=== PATIENT | male | born 1945 | race Caucasian/White ===

== ENCOUNTER → 2017-01-27 09:10 | Outpatient (CLI) | payer MEDICARE, OTHER ==
[~2017-01-27 09:10] MED LIST: ASPIRIN EC81 M1 PO; BENADRYL50 MG PO; LIMBREL 500 MG500 MG PO; LISINOPRIL10 MG PO; MAGNESIUM OXID500 MG PO; METOPROLOL TART50 MG PO; MIRAPEX0.125 MG PO; MULTI-DAY VITAM1 TAB PO; OS-CAL 500+D TA1 TAB PO; PERCOCET 5-3251 TAB PO; PRAVACHOL40 MG PO; PROTONIX40 MG PO
--- NOTE | 2017-02-03 10:07 | EC ---
PATIENT:JOHN VARGAS DATE OF SERVICE: 01/27/17 SEX: M MEDICAL RECORD: [id number] DATE OF : 41 LOCATION:D.[facility] AGE OF PATIENT: 72 ADMISSION DATE: 01/27/17 REFERRING PHYSICIAN: INTERPRETING PHYSICIAN: ANTHONY ROMAN MD ECHOCARDIOGRAM REPORT ECHO CHARGES 4 ECHO COMPLETE CLINICAL DIAGNOSIS: CP/DIZZINESS - H/O AVR ECHOCARDIOGRAPHIC MEASUREMENTS (adult normal given) AC root (d.<3.7cm) 3.4 cm LV Septum d (<1.2 cm> 1.3 cm Valve Excursion 1.0 cm LV Septum (systole) 2.1 cm Left Atria (s.<4.0cm> 4.1 cm LVPW d(<1.2cm) 1.4 cm RV (d.<2.3cm) 2.4 cm LVPW (sytole) 2.0 cm LV diastole(<5.6CM) 5.7 cm MV E-F(>70mm/sec) cm LV systole 3.0 cm LVOT Diameter 1.7 cm MV exc.(>10mm) cm Est.ejection fraction (50-75%) % Pericardial Effusion N DOPPLER: LVIT cm/sec A 72.0 cm/sec E 107 cm/sec LA cm/sec RVSP 48.4 mmHg LVOT 115 cm/sec AOP1/2T m/s Asc. Ao 269 cm/sec RVOT 43.0 cm/sec RA cm/sec PA 86.0 cm/sec AV Gradient Peak 29.0 mmHg AV Mean 15.0 mmHg AV Area 0.9 cm MV Gradient Peak 7.9 mmHg MV Mean 2.3 mmHg MV Area cm COMMENTS: Warp Doffer: Amy [employer]OE Automation And Controls Manager: Anastasiia Roman TAPE# PACS DATE OF SERVICE: 01/27/2017 PROCEDURE: Transthoracic echocardiogram. FINDINGS: 1. The left ventricle has [id number] concentric left ventricular hypertrophy. Inflow characteristics, however, normal. 2. The left ventricular ejection fraction is 60%. 3. The aortic valve has a history of aortic valve replacement. Dimensions of aortic valve are not known at this point. The peak gradient across the ECHOCARDIOGRAM REPORT [id number] JOHN VARGAS bioprosthetic aortic valve is 29 mmHg, which may be normal depending on the initial size of that valve that was replaced. 4. The left atrium is mildly dilated. 5. The right ventricle is normal size, normal function. 6. The right atrium is moderately dilated. 7. The tricuspid valve has moderate tricuspid regurgitation with a mildly elevated right ventricular systolic pressure of 40. 8. There is no pleural effusion. There is no pericardial effusion. The pulmonic valve is grossly normal. 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 Normal LV systolic function. TRANSINT:[id number] Voice Confirmation ID: [id number] DOCUMENT ID: [id number] ANTHONY ROMAN MD at 1007 CC: [id number] DICTATION DATE: 01/29/17 0836 PARALEGAL SPECIALIST: 01/29/17 0917 DEP CLI 01/27/17 [facility] [address] [place] [address]
[2017-04-15 12:52] VITALS: BMI 29.0
== END | disposition home or self-care (01) ==
LOC: D.ECHO 09:10
DX: R42 Dizziness and giddiness (principal)

== ENCOUNTER 2017-04-15 10:40 | Day surgery (SDC) | payer MEDICARE, OTHER ==
[~2017-04-15] VITALS: Ht 170.2 cm; Wt 83.9 kg
--- NOTE | ~2017-04-15 | OP ---
PATIENT NAME: JOHN VARGAS MEDICAL RECORD: [id number] :41 LOCATION:[facility] ADMISSION DATE: SURGEON: SUSANNA HOLCOMB DATE OF OPERATION: 04/15/2017 SURGEON: Susanna Holcomb DPM PREOPERATIVE DIAGNOSIS: Osteoarthritis, right first metatarsophalangeal joint. POSTOPERATIVE DIAGNOSIS: Osteoarthritis, right first metatarsophalangeal joint. PROCEDURE: Martin implant arthroplasty, first metatarsal, right foot. ANESTHESIA: Local with monitored anesthesia care. HEMOSTASIS: Pneumatic ankle tourniquet inflated to 250 mmHg. ESTIMATED BLOOD LOSS: Minimal. MATERIALS: One right medical LPT great toe implant. INJECTABLES: 20 cc of 0.5% bupivacaine plain. The patient has longstanding history of pain associated with the first metatarsophalangeal joint. Radiographs reveal complete erosion of the cartilage with copious osteophytes noted. I have discussed with him the proposed procedure, risks and benefits were discussed. Complications were reviewed. His questions were answered. He was appropriately consented for the above-mentioned procedure. DESCRIPTION OF PROCEDURE: The patient was brought in the operating room and placed in the operating table in the supine position. A timeout was called with Dr. Holcomb, who identified the patient, the surgical site, and the surgery to be performed. Once appropriate anesthesia was obtained, the foot was prepped and draped in the usual aseptic manner. Attention was directed to the dorsal aspect of the right foot where a 6-cm linear incision was made directly over the first metatarsophalangeal joint. This incision was carried deep to soft tissue with care being taken to retract all vital neurovascular structures. All bleeders were cauterized along the way. A large dorsal joint mass was identified on the first metatarsal head and this was removed utilizing both blunt and sharp dissection. The capsule structures were freed from the head of the first metatarsal, thus exposing the joint. The joint was inspected and there was essentially no cartilage remaining on the head of the first metatarsal or the base of the proximal phalanx. Next, utilizing a sagittal saw, all hypertrophied bone and osteophytes were removed. They were smoothed with combination of rongeur and rasp. Next, utilizing manufacture's recommended technique, one martin-implant was placed at the base of the proximal phalanx after appropriate resection of bone. The surgical site was then irrigated with copious amounts of normal sterile saline via bulb syringe. The martin-implant was noted to fit well and range of motion was noted to be much improved after implantation. The periosteum was reapproximated and coapted utilizing 3-0 Vicryl. The subQ was reapproximated and coapted using 3-0 Vicryl. The skin was reapproximated OPERATIVE REPORT [id number] JOHN VARGAS and coapted using 4-0 nylon. A dressing consisting of Xeroform, 4 x 4's, Kerlix, and Taurus bandage was applied to the right foot. The pneumatic ankle tourniquet was deflated and capillary refill time was immediate to all digits of the right foot. The patient tolerated the procedure and anesthesia well. He left the operating room with vital signs stable and capillary refill time intact. The patient was discharged home with instructions to ice and elevate his right foot. He was dispensed a postop shoe to help offload the surgical site. We will follow up with him next week. There were no complications with this procedure. TRANSINT:[id number] Voice Confirmation ID: [id number] DOCUMENT ID: [id number] SUSANNA HOLCOMB at 1450 CC: [id number] DICTATION DATE: 04/15/17 1634 DIRECTOR CLINICAL PHARMACOLOGY: 04/15/17 2318 [facility] 04/15/[address] [address]
[2017-04-15 11:59] LABS: BASOPHILS 0.3 % (0-2); EOSINOPHILS 3.7 % (0-7); HEMATOCRIT 39.1 % (42.0-54.0); HEMOGLOBIN 12.7 g/dL (13.5-17.5); LYMPHOCYTES 31.4 % (15-50); MCH 26.1 pg (26.0-34.0); MCHC 32.5 g/dL (31.0-37.0); MCV 80.5 fL (80.0-100.0); MEAN PLATELET VOLUME 10.1 fL (7.4-10.4); MONOCYTES 11.9 % (2-11); NEUTROPHILS 52.7 % (40-80); PLATELET COUNT 169 10x3/uL (130-400); RBC 4.86 10x6/uL (4.20-6.10); RDW 15.4 % (11.5-14.5); WBC 3.5 10x3/uL (4.8-10.8)
[2017-04-15 12:06] LABS: APTT 28.1 SECONDS (22.8-39.4); INR 1.08 (0.85-1.17); PROTIME 13.6 SECONDS (11.6-15.0)
[2017-04-15 12:52] VITALS: BP 137/87; Ht 170.2 cm; Wt 83.9 kg
== END 2017-04-15 17:35 | disposition home or self-care (01) ==
LOC: D.OPS 10:40 → D.PAN 13:15 → D.OPS 17:35
PROVIDERS: Anesthesiology
DX: M20.21 Hallux rigidus, right foot (principal); I10 Essential (primary) hypertension; Z01.812 Encounter for preprocedural laboratory examination

== ENCOUNTER → 2017-12-21 10:23 | Outpatient (CLI) | payer MEDICARE, OTHER ==
[2017-04-15 12:52] VITALS: BMI 29.0
== END | disposition home or self-care (01) ==
LOC: D.MRI 10:23
DX: M25.562 Pain in left knee (principal)

== ENCOUNTER → 2018-08-22 10:17 | Outpatient (CLI) | payer MEDICARE, OTHER ==
[2017-04-15 12:52] VITALS: BMI 29.0
== END | disposition home or self-care (01) ==
LOC: D.HCCARDIO 10:17
PROVIDERS: ATTEND Internal Medicine Interventional Cardiology
DX: R01.1 Cardiac murmur, unspecified (principal)

== ENCOUNTER → 2018-08-22 16:41 | Outpatient (CLI) | payer MEDICARE, OTHER ==
[2017-04-15 12:52] VITALS: BMI 29.0
--- NOTE | ~2018-08-22 | EC ---
PATIENT:JOHN VARGAS DATE OF SERVICE: 08/22/18 SEX: M MEDICAL RECORD: [id number] DATE OF : 41 LOCATION:D.[facility] AGE OF PATIENT: 73 ADMISSION DATE: 08/22/18 REFERRING PHYSICIAN: INTERPRETING PHYSICIAN: MALLORY HINES MD ECHOCARDIOGRAM REPORT ECHO CHARGES Date: CLINICAL DIAGNOSIS: ECHOCARDIOGRAPHIC MEASUREMENTS (adult normal given) AC root (d.<3.7cm) cm LV Septum d (<1.2 cm> cm Valve Excursion cm LV Septum (systole) cm Left Atria (s.<4.0cm> cm LVPW d(<1.2cm) cm RV (d.<2.3cm) cm LVPW (sytole) cm LV diastole(<5.6CM) cm MV E-F(>70mm/sec) cm LV systole cm LVOT Diameter cm MV exc.(>10mm) cm Est.ejection fraction (50-75%) % DOPPLER: LVIT cm/sec A cm/sec E cm/sec LA cm/sec RVSP mmHg LVOT cm/sec AOP1/2T m/s Asc. Ao cm/sec RVOT cm/sec RA cm/sec PA cm/sec AV Gradient Peak mmHg AV Mean mmHg AV Area cm MV Gradient Peak mmHg MV Mean mmHg MV Area cm COMMENTS: Strapper: Auxiliary Equipment Tender: ALEJANDRO# Pericardial Effusion DATE OF SERVICE: 08/22/2018 PROCEDURE: Echocardiogram. FINDINGS: 1. Left ventricular chamber size is within normal limits. Left ventricular systolic function is normal. Overall ejection fraction estimated at 55%. 2. Left atrium is enlarged at 5.8 cm. Right atrium and right ventricular chamber sizes are as well mildly dilated. 3. Valvular structures: Aortic valve is replaced with a tissue prosthesis with ECHOCARDIOGRAM REPORT [id number] JOHN VARGAS normal structure and function in this position. The remaining valvular structures have normal structure and motion. 4. Doppler interrogation reveals mild mitral regurgitation, moderate tricuspid regurgitation, no other valvular insufficiency or stenosis. 5. No evidence of pericardial effusion or left ventricular thrombus. TRANSINT:[id number] Voice Confirmation ID: [id number] DOCUMENT ID: [id number] MALLORY HINES MD CC: [id number] DICTATION DATE: 08/29/18 1021 FURRIER DESIGNER: 08/29/18 1123 DEP CLI 08/22/18 [facility] [address] [place] [address]
[2018-08-22 17:11] LABS: LDL-HDL RATIO 2.4 ratio (1.5-3.5)
== END | disposition home or self-care (01) ==
LOC: D.LABREF 16:41
PROVIDERS: ATTEND Internal Medicine Interventional Cardiology
DX: E78.5 Hyperlipidemia, unspecified (principal)

== ENCOUNTER → 2018-11-09 12:03 | Outpatient (CLI) | payer MEDICARE, OTHER ==
[2017-04-15 12:52] VITALS: BMI 29.0
--- NOTE | 2018-11-15 09:53 | ST ---
PATIENT:JOHN VARGAS MEDICAL RECORD: [id number] SEX: M LOCATION:[facility] ORDER #: ADMISSION DATE: 11/09/18 AGE OF PATIENT: 73 REFERRING PHYSICIAN: INTERPRETING PHYSICIAN: MALLORY HINES MD DATE OF SERVICE: 11/09/2018 PROCEDURE: Nuclear stress test. INDICATION: Angina, shortness of breath, hypertension and hyperlipidemia. He was exercised on standard Lexiscan protocol with 32 mCi of sestamibi injected at peak stress, 10 mCi used previously for rest images. FINDINGS: Gated SPECT reveals a preserved ejection fraction at 69% with good wall motioning and thickening and brightening throughout all segments. SPECT imaging Cardiolite was used as myocardial perfusion agent. There are reversible changes inferiorly, apically, and laterally. This includes the basal, mid, apical inferior segments as well as the apex itself, apical lateral, mid lateral, basal lateral segments. The degree of reversibility is mild. The amount of myocardium involved is large. OVERALL IMPRESSION: This is an intermediate risk nuclear stress test with large amount of myocardium involved with reversibility inferiorly, apically, and laterally suggestive of possible multivessel coronary artery disease. We will proceed with coronary angiography as followup to the study. TRANSINT:[id number] Voice Confirmation ID: [id number] DOCUMENT ID: [id number] MALLORY HINES MD at 0953 CC: [id number] DICTATION DATE: 11/11/18 1323 EFFICIENCY MANAGER: 11/12/18 0029 DEP CLI 11/09/18 [place] [id number]
== END | disposition home or self-care (01) ==
LOC: D.HCCARDIO 12:00
PROVIDERS: ATTEND Internal Medicine Interventional Cardiology
DX: I20.9 Angina pectoris, unspecified (principal)

== ENCOUNTER 2018-11-18 08:02 | Outpatient (CLI) | payer MEDICARE, OTHER ==
[~2018-11-18] VITALS: Ht 170.2 cm; Wt 81.8 kg
--- NOTE | ~2018-11-18 | HEMODYNAMI ---
PATIENT:JOHN VARGAS MEDICAL RECORD: [id number] : 41 LOCATION:[facility] ADMISSION DATE: 11/18/18 Generatedon:11/18/201811:02 Patient name: JOHN VARGAS Patient #: [id number] SSN: [id number] : 1945 Date of study: 11/18/2018 Page: Of Hemodynamic Procedure Report Patient Data Patient Demographics Procedure consent was obtained First Name: JOHN Gender: Male Last Name: ALICIA : 1945 Patient #: [id number] Age: 73 year(s) Race: SSN: [id number] Additional ID: [id number] Contact details Address: [address] [place] [address] State: [place] City: [place] Zip code: [address] Past Medical History Performed procedures and imaging results Date Procedure Procedure Results Comments 11/09/2018 Stress testing Positive->Intermediate with SPECT MPI risk Allergies Allergen Reaction Date Comments Reported Other allergy 11/18/2018 Dilaudid, morphine Admission Admission Data Admission Date: 11/18/2018 Admission Time: 8:02 Arrival Date: 11/18/2018 Arrival Time: 0:00 Admit Source: Other Insurance Payor: Medicare [facility] #: [id number] Height (in.): 66 BSA: 1.96 (m2) Height (cm.): 167.64 BMI: 30.67 (kg/m2) Weight (lbs.): 190 Weight (kg.): 86.18 Lab Results Lab Result Date: 11/16/2018 Lab Result Time: 8:40 Biochemistry Name Units Result Min Max BUN mg/dl 22 --(----)-* 7 18 Creatinine mg/dl 1.1 --(--*-)-- 0.6 1.3 CBC Name Units Result Min Max Hematocrit % 40.4 -*(----)-- 42 54 Hemoglobin g/dl 13.4 -*(----)-- 13.5 17.5 Procedure Procedure Types Cath Procedure Diagnostic Procedure [facility] w/Coronaries Sedation Charges Moderate Sedation up to 15 minutes Procedure Description Procedure Date Procedure Date: 11/18/2018 Procedure Start Time: 10:49 Procedure End Time: 11:00 Procedure Staff Name Function Monster Trevino MD Performing Physician Jesus Bob RT Monitor Richard Steward RN Nurse Agapito Hammonds RT Scrub Indication Shortness of breath Angina Procedure Data Cath Procedure Fluoroscopy Diagnostic fluoroscopy Total fluoroscopy Time: 2.9 time: 2.9 min min Diagnostic fluoroscopy Total fluoroscopy dose: 497 dose: 497 mGy mGy Contrast Material Contrast Material Type Amount (ml) Isovue 300 34 Entry Location Entry Primary Successful Side Size Upsize Upsize Entry Closure Succes sful Closure Location (Fr) 1 (Fr) 2 (Fr) Remarks Device Remarks Femoral Right 5 Fr Exoseal artery Estimated blood loss: 10 ml Diagnostic catheters Device Type Used For End Catheter Placement MULTIPACK Pigtail 5 Fr Procedure catheter MULTIPACK JL 4.0 5Fr Procedure catheter MULTIPACK 3DRC 5Fr Procedure catheter Procedure Complications No complications Procedure Medications Medication Administration Route Dosage Zofran I.V. 4 mg Oxygen etCO2 Nasal cannula 2 l/min Lidocaine 2% added to field 20 Heparin Flush Bag added to field 2 bags (1000units/500ml NS) 0.9% NaCl I.V. 100 ml/hr Versed I.V. 1 mg Fentanyl I.V. 50 mcg Versed I.V. 1 mg Fentanyl I.V. 50 mcg Versed I.V. 0.5 mg Hemodynamics Rest BSA: 1.96 (m2) O2 Consumption: Estimated: 214.87 (ml/min) O2 Consumption indexed : Estimated:109.63 (ml/min/m) Heart Rate: 56 (bpm) Snapshots Pre Cath Intra NCS Post Cath Vital Signs Time Heart Resp SPO2 etCO2 NIBP (mmHg) Rhythm Pain Sedation Rate (ipm) (%) (mmHg) Status Level (bpm) 10:35:11 58 17 99 0 168/92(149) NSR 0 (11) 10(A) , No pain 10:39:29 57 16 97 9.7 145/90(134) NSR 0 (11) 10(A) , No pain 10:43:45 56 16 98 0 139/88(122) NSR 0 (11) 10(A) , No pain 10:48:03 55 15 96 19.4 147/78(127) NSR 0 (11) 10(A) , No pain 10:52:23 57 14 90 30.7 130/78(123) NSR 0 (11) 9(A) , No pain 10:56:35 60 17 95 12.7 132/84(102) NSR 0 (11) 10(A) , No pain 11:00:49 57 22 98 38.1 140/79(124) NSR 0 (11) 9(A) , No pain Medications Time Medication Route Dose Verified Delivered Reason Notes Eff ectiveness by by 10:33:18 Zofran I.V. 4 mg Monster Ramos Per Uriel Steward RN physician 10:33:31 Oxygen etCO2 2 Monster Monster for local Nasal l/min Uriel Trevino MD anesthetic cannula 10:33:38 Lidocaine 2% added 20ml Monster Hook used for to vial Uriel Trevino MD procedure field 10:33:45 Heparin Flush added 2 Monsterkeyona Ramos used for Bag to bags Uriel Steward RN procedure (1000units/500ml field NS) 10:33:55 0.9% NaCl I.V. 100 Monster Ramos Per ml/hr Uriel Steward RN physician 10:47:04 Fentanyl I.V. 50 Monster Ramos for mcg Uriel Steward RN sedation 10:47:59 Versed I.V. 1 mg Monster Ramos for Uriel Steward RN sedation 10:51:35 Versed I.V. 1 mg Monster Ramos for Uriel Steward RN sedation 10:51:39 Fentanyl I.V. 50 Monster Ramos for mcg Uriel Steward RN sedation 10:55:55 Versed I.V. 0.5 Monster Ramos for mg Uriel Steward RN sedation Procedure Log Time Note 10:15:46 Richard Steward RN sent for patient. Start room use. 10:17:55 Informed consent obtained and on chart 10:21:17 Patient allergic to Other allergyDilaudid, morphine 10:21:31 Arrival Date: 11/18/2018 12:00:00 AM 10:22:21 Insurance Payor : Medicare 10:22:27 Admit Source: Other 10:22:40 Patient Height : 66 inches 10:22:47 Patient Weight : 190 lbs 10::16 Lab Result : BUN 22 mg/dl 10:: Lab Result : Hematocrit 40.4 % 10::16 Lab Result : Hemoglobin 13.4 g/dl 10:: Lab Result : Creatinine 1.1 mg/dl 10:: Diagnostic Cath Status : Elective 10::18 Indication : Shortness of breath 10:: Indication : Angina 10::18 ACC Patient presents with Stable Angina CCS Anginal Class 3--Marked limitation of physical activity, angina occurs with ordinary activity.. 10:28:24 ACCPatient has been prescribed/administered the following anti-anginal medication within the last 2 weeks: Beta Jenny, FATEMEH-Inhibitor 10::42 Procedure Status Elective Heart Cath (OP). 10:29:11 Time tracking: Regular hours (M-F 7:00 - 5:00) 10:29:30 Plan of Care:Hemodynamics will remain stable., Cardiac rhythm will remain stable., Comfort level will be maintained., Respiratory function will remain adequate., Patient/ family verbilizes understanding of procedure., Procedure tolerated without complication., Recovers from procedure without complications.. 10:29:39 Patient received from Pre/Post Procedure Room to CCL 1 Alert and oriented. Tansferred to table in Supine position. 10:29:44 Warm blankets applied, and chuck hugger turned on for patient comfort. 10:29:45 Correct patient and procedure confirmed by team. 10:29:46 ECG and BP/O2 sat monitors applied to patient. 10:30:12 H&P Date Dictated: 10/19/2018 Within 30 days and on chart., H&P Addendum completed by physician on day of procedure. (MUST COMPLETE FOR ALL OUTPATIENTS). 10:30:14 Pre-procedure instructions explained to patient. 10:30:15 Pre-op teaching completed and patient verbalized understanding. 10:30:20 Family in patients room. 10:30:23 Patient NPO since Midnight. 10:30:29 Is the patient allergic to Iodine/contrast media? No. 10:31:14 Previous problem with sedation/anesthesia? Yes Nausea 10:31:34 Snore? Yes 10:31:37 Sleep apnea? No 10:31:46 Deviated septum? No 10:31:48 Opens mouth fully? Yes 10:31:54 Sticks out tongue? Yes 10:32:04 Dentures? No ? 10:32:07 Airway obstruction? No ? 10:32:31 ACC The patient was administered the following blood thiners within the last 24 hours: None 10:32:40 Patient diabetic? No. 10:33:18 Zofran 4 mg I.V. was administered by Richard Steward RN; Per physician; 10:33:31 Oxygen 2 l/min etCO2 Nasal cannula was administered by Monster Trevino MD; for local anesthetic; 10:33:38 Lidocaine 2% 20ml vial added to field was administered by Monster Trevino MD; used for procedure; 10:33:45 Heparin Flush Bag (1000units/500ml NS) 2 bags added to field was administered by Richard Steward RN; used for procedure; 10:33:55 0.9% NaCl 100 ml/hr I.V. was administered by Richard Steward RN; Per physician; 10:34:00 Vital chart was started 10:34:09 Patient pain scale 0/10 ?. 10:34:16 Modified Herve's test Radial > 7 seconds. 10:34:32 IV patent on arrival in left wrist with 0.9% NaCl at 100ml/hr. 10:34:50 Lab results completed and on chart. 10:35:02 Right groin area was prepped with chlora-prep and draped in sterile fashion 10:35:06 Alarms reviewed by Tramaine Garduno 10:35:39 Pre procedure: right dorsailis pedis pulse 3+ Increased pulse; moderate pressure to obliterate 10:35:43 Pre procedure: right dorsailis pedis pulse 2+ Normal; easily identifiable; not easily obliterated 10:36:42 Use device set Femoral Dx 10:36:47 ACIST Syringe (57081) opened to sterile field. 10:36:48 Bag Decanter (2002) opened to sterile field. 10:36:49 Medline Cath Pack ([id number]) opened to sterile field. 10:36:52 ACIST Hand Control (24766) opened to sterile field. 10:36:54 ACIST Manifold (92917) opened to sterile field. 10:36:54 DIAGNOSTIC Multipack 5Fr catheter set (OT0710) opened to sterile field. 10:37:03 Tegaderm 4 x 4 (1626W) opened to sterile field. 10:37:07 EMERALD Guide Wire (490-031) opened to sterile field. 10:37:09 SHEATH 5FR Grover (EHQ475) opened to sterile field. 10:46:35 --------ALL STOP TIME OUT------ 10:46:35 Final Timeout: patient, procedure, and site verified with staff and physician. All members of the team are in agreement. 10:46:38 Right groin site verified by team. 10:46:42 Fire Safety Assessment: A--An alcohol-based skin anteseptic being used preoperatively., C--Open oxygen or nitrous oxide is being used., D--An ESU, laser, or fiber-optic light is being used. 10:46:45 Physical assessment completed. ASA score P 2 - A patient with mild systemic disease as per Monster Trevino MD. 10:46:48 2) 60-89 Mildly reduced kidney function, and other findings (as for stage 1) point to kidney disease. 10:47:04 Fentanyl 50 mcg I.V. was administered by Richard Steward RN; for sedation; 10:47:59 Versed 1 mg I.V. was administered by Richard Steward RN; for sedation; 10:48:09 Maximum allowable contrast dose (3.7 X eGFR X 0.75)192 ml. 10:48:13 Sedation plan: IV Moderate Sedation Medication:Versed, Fentanyl 10:49:36 Procedure started. 10:49:37 Full Disclosure recording started 10:49:40 Local anesthetic to right femoral artery with Lidocaine 2% by Monster Trevino MD.INITIAL ACCESS ONLY 10:50:48 A 5 Fr sheath was inserted into the Right Femoral artery 10:51:17 A MULTIPACK Pigtail 5 Fr catheter was advanced over the wire and used for Procedure. 10:51:35 Versed 1 mg I.V. was administered by Richard Steward RN; for sedation; 10:51:39 Fentanyl 50 mcg I.V. was administered by Richard Steward RN; for sedation; 10:52:37 Zero performed for pressure channel P1 10:52:46 Baseline sample Acquired. 10:52:51 Rhythm: sinus bradycardia 10:53:32 Unable to cross valve. 10:53:36 Catheter removed. 10:54:05 A MULTIPACK JL 4.0 5Fr catheter was advanced over the wire and used for Procedure. 10:54:55 LCA angiography performed. 10:54:58 Catheter removed. 10:55:14 A MULTIPACK 3DRC 5Fr catheter was advanced over the wire and used for Procedure. 10:55:46 RCA angiography performed. 10:55:49 ACCDominant side:Right 10:55:51 Catheter removed. 10:55:55 Versed 0.5 mg I.V. was administered by Richard Steward RN; for sedation; 10:56:09 EXOSEAL 5Fr (EX500) opened to sterile field. 10:56:28 Sheath removed intact; hemostasis achieved with Exoseal to the Right Femoral artery. 10:56:30 Procedure ended.(Physican Out) 10:58:07 Fluoroscopy time 02.90 minutes. 10:58:12 Fluoroscopy dose: 497 mGy 10:58:12 Flurop Dose total: 497 10:58:16 Dose Area Product 31128 mGy/cm. 10:58:21 Contrast amount:Isovue 300 34ml. 10:58:23 Maximum allowable dose exceeded? No. 10:58:24 Sharps counted by scrub and verified by R.N. 10:58:26 Insertion/operative site no bleeding no hematoma. 10:58:29 Post-op/insertion site Right Femoral artery dressed using a 4 x 4 and Tegaderm. 10:58:30 Post Procedure Pulses reassessed and unchanged 10:58:32 Post-procedure physical assessment completed. ASA score P 2 - A patient with mild systemic disease as per Monster Trevino MD. 10:58:35 Post procedure rhythm: unchanged. 10:58:38 Estimated blood loss: 10 ml 10:58:39 Post procedure instruction explained to patient.Patient verbalizes understanding. 10:58:40 Patient needs reinforcement of post procedure teaching. 10:58:50 Procedure type changed to Cath procedure, Diagnostic procedure, LHC, LHC w/Coronaries, Sedation Charges, Moderate Sedation up to 15 minutes 10:58:51 Procedure and supply charges have been captured, reviewed, submitted and are correct. 10:58:53 Procedure Complication : No complications 11:00:33 See physician's report for complete and final results. 11:00:34 Vital chart was stopped 11:00:48 Report given to Pre/Post Procedure Room. 11:00:51 Patient transfered to Pre/Post Procedure Room with Stretcher. 11:00:53 Procedure ended. 11:00:53 Full Disclosure recording stopped 11:01:04 End room use (Document Last) Device Usage Item Name Manufacture Quantity Catalog Hospital Part Current Minimal L ot# / Number Charge Number Stock Stock Serial# Code ACIST Acist 1 [id number] 332149 238648 20 Syringe Medical (09946) Systems Inc Bag Microtek 1 473923 01733 839192 5 Decanter Medical Inc. () Medline Medline 1 [id number] 822577 44168 554773 5 Cath Pack ([id number]) ACIST Hand Acist 1 67304 950309 540555 235430 5 Control Medical (07292) Systems Inc ACIST Acist 1 51986 759707 490286 734710 5 Manifold Medical (02003) Systems Inc DIAGNOSTIC Cardinal 1 [id number] 853967 04154 304652 30 Multipack Health 5Fr catheter set (BC2510) Tegaderm 4 3M 1 1626W 140871 222083 299147 5 x 4 (1626W) EMERALD Cardinal 1 502-455 873154 871329 866267 5 Guide Wire Health (502-455) SHEATH 5FR Terumo 1 NRY921 563786 614857 846492 5 Grover (UBL105) MULTIPACK Cardinal 1 401030 5 Pigtail 5 Health Fr catheter MULTIPACK Cardinal 1 751768 5 JL 4.0 5Fr Health catheter MULTIPACK Cardinal 1 785231 5 3DRC 5Fr Health catheter EXOSEAL 5Fr Cardinal 1 EX500 805691 609137 390839 10 (EX500) Health Signature Audit [place] Stage Time Signature Unsigned Intra-Procedure 11/18/2018 Jesus Bob 11:02:05 AM RT(R) Signatures Performing Physician : Signature : Monster Trevino MD Date : Time : Monitor : Jesus Bob RT Signature : Date : Time : Nurse : Buffie Steward RN Signature : Date : Time : [address] [place] [address]
[2018-11-18] MEDS ORDERED: MELATONIN10 M1 PO (08:24)
[2018-11-18 08:36] VITALS: BP 190/76; Ht 170.2 cm; Wt 81.8 kg
[2018-11-18 08:45] LABS: BASOPHILS 0.4 % (0-2); EOSINOPHILS 4.5 % (0-7); HEMATOCRIT 40.4 % (42.0-54.0); HEMOGLOBIN 13.4 g/dL (13.5-17.5); IMMATURE GRANULOCYTES 0.1 % (0-5); LYMPHOCYTES 19.2 % (15-50); MCH 27.2 pg (26.0-34.0); MCHC 33.2 g/dL (31.0-37.0); MCV 82.1 fL (80.0-100.0); MEAN PLATELET VOLUME 10.4 fL (7.4-10.4); MONOCYTES 9.5 % (2-11); NEUTROPHILS 66.3 % (40-80); PLATELET COUNT 169 10x3/uL (130-400); RBC 4.92 10x6/uL (4.20-6.10); RDW 14.7 % (11.5-14.5); WBC 7.3 10x3/uL (4.8-10.8)
[2018-11-18 08:58] LABS: CALCIUM 8.9 mg/dL (8.5-10.1); CARBON DIOXIDE 28.1 mmol/L (21.0-32.0); CHOL - HDL RATIO 2.8 ratio (2.3-4.9); CREATININE - SERUM 1.1 mg/dL (0.6-1.3); LDL-HDL RATIO 1.4 ratio (1.5-3.5); POTASSIUM - SERUM 4.1 mmol/L (3.5-5.1)
--- NOTE | 2018-11-18 11:25 | NUR ---
2L NC, NO RESP DISTRESS. RIGHT GROIN 5F EXOSEAL CDI, NO BLEEDING OR HEMATOMA NOTED. NO C/O PAIN OR NAUSEA. VSS. FAMILY AT BEDSIDE, CALL LIGHT WITHIN REACH.
--- NOTE | 2018-11-18 11:55 | NUR ---
RESTING QUIETLY WITH EYES CLOSED. RIGHT GROIN 5F EXOSEAL CDI, NO BLEEDING OR HEMATOMA NOTED. DENIES ANY NEEDS. VSS. WILL CONTINUE TO MONITOR.
--- NOTE | 2018-11-18 12:10 | NUR ---
HOB ELEVATED 30 DEGREES. RIGHT GROIN 5F EXOSEAL CDI, NO BLEEDING OR HEMATOMA NOTED. SIPPING ON DRINK AND EATING SANDWICH WITH NO C/O NAUSEA. VSS. CALL LIGHT WITHIN REACH.
--- NOTE | 2018-11-18 12:40 | NUR ---
LEFT PIV D/C'D WITH CATHETER INTACT, BAND AID TO SITE. RIGHT GROIN 5F EXOSEAL CDI, NO BLEEDING NOTED. UP TO BEDSIDE TO GET DRESSED. AMBULATED TO RESTROOM.
--- NOTE | 2018-11-18 12:52 | NUR ---
DISCHARGE INSTRUCTIONS GIVEN TO PT AND , BOTH VERBALIZED UNDERSTANDING.
--- NOTE | 2018-11-18 13:00 | NUR ---
TAKEN OUT VIA WHEELCHAIR BY CATH SOCIAL MEDIA STRATEGIST. LEFT FACILITY WITH FAMILY AND ALL PERSONAL BELONGINGS.
--- NOTE | 2018-11-29 12:04 | OP ---
PATIENT NAME: JOHN VARGAS MEDICAL RECORD: [id number] :41 LOCATION:D.[facility] ADMISSION DATE: SURGEON: MALLORY HINES MD DATE OF OPERATION: 11/18/2018 PROCEDURE: Selective coronary angiography. INDICATION: Shortness of breath, abnormal nuclear stress test, angina. PROCEDURE IN DETAIL: After informed consent was obtained and after a detailed description of risks, benefits as well as alternative therapies, the patient elected to proceed with angiogram and heart catheterization. The right femoral area was prepped and draped in normal sterile fashion. Right femoral artery was cannulated via modified Seldinger technique with placement of 5-Urdu sheath. All catheters exchanged through this sheath. FINDINGS: There is a prosthetic aortic valve. We could not cross the valve for left ventriculogram. SELECTIVE CORONARY ANGIOGRAPHY: Left main, left anterior descending, left circumflex, right coronary artery all have minimal irregularities, no flow-limiting stenosis. OVERALL IMPRESSION: Minimal coronary artery disease is present. No flow-limiting stenosis. His symptomatology is not secondary to ischemic heart disease. Nuclear stress test was false positive. Continue medical management of the cardiac risk factors. TRANSINT:[id number] Voice Confirmation ID: [id number] DOCUMENT ID: [id number] MALLORY HINES MD at 1204 CC: [id number] DICTATION DATE: 11/18/18 1101 HUMAN RESOURCE ADVISOR: 11/18/18 1120 DEP CLI 11/18/18 [place] [id number] [place] [id number]
== END 2018-11-18 13:00 | disposition home or self-care (01) ==
LOC: D.CATH 08:02
PROVIDERS: ATTEND Internal Medicine Interventional Cardiology
DX: R06.02 Shortness of breath (principal); I25.10 Atherosclerotic heart disease of native coronary artery without angina pectoris; Z01.812 Encounter for preprocedural laboratory examination; Z95.2 Presence of prosthetic heart valve

== ENCOUNTER → 2019-02-15 17:06 | Outpatient (CLI) | payer MEDICARE, OTHER ==
[2018-11-18 08:36] VITALS: BMI 28.2
[~2019-02-15 17:06] MED LIST changes: +MELATONIN10 M1 PO
[2019-02-15 19:08] LABS: CHOL - HDL RATIO 3.5 ratio (2.3-4.9); LDL-HDL RATIO 2.2 ratio (1.5-3.5)
== END | disposition home or self-care (01) ==
LOC: D.LABREF 17:06
PROVIDERS: ATTEND Nurse Practitioner
DX: E78.5 Hyperlipidemia, unspecified (principal)

== ENCOUNTER → 2019-04-11 09:15 | Outpatient (CLI) | payer MEDICARE, OTHER ==
[2018-11-18 08:36] VITALS: BMI 28.2
[~2019-04-11 09:15] MED LIST changes: +HYDROCODON-ACE1 EA10 PO; +PERCOCET 10-321 EAC1 PO; +TUMS X-STR300 MG PO; +VITAMIN D31000 UNI2 PO
== END | disposition home or self-care (01) ==
LOC: D.PAN 09:15
PROVIDERS: Anesthesiology; ATTEND Orthopaedic Surgery
DX: M65.342 Trigger finger, left ring finger (principal); M65.352 Trigger finger, left little finger; Z01.810 Encounter for preprocedural cardiovascular examination; Z01.811 Encounter for preprocedural respiratory examination; Z01.812 Encounter for preprocedural laboratory examination

== ENCOUNTER 2019-04-13 05:25 | Day surgery (SDC) | payer MEDICARE, OTHER ==
[2019-04-11 10:45] LABS: BASOPHILS 0.2 % (0-2); EOSINOPHILS 4.7 % (0-7); HEMATOCRIT 39.4 % (42.0-54.0); HEMOGLOBIN 12.8 g/dL (13.5-17.5); LYMPHOCYTES 27.1 % (15-50); MCHC 32.5 g/dL (31.0-37.0); MCV 83.1 fL (80.0-100.0); MEAN PLATELET VOLUME 9.7 fL (7.4-10.4); MONOCYTES 12.6 % (2-11); NEUTROPHILS 55.4 % (40-80); PLATELET COUNT 154 10x3/uL (130-400); RBC 4.74 10x6/uL (4.20-6.10); RDW 14.5 % (11.5-14.5); WBC 4.7 10x3/uL (4.8-10.8)
[2019-04-11 10:53] LABS: ANION GAP 8.1 mmol/L (8-16); CALCIUM 8.7 mg/dL (8.5-10.1); CREATININE - SERUM 1.2 mg/dL (0.6-1.3); POTASSIUM - SERUM 4.1 mmol/L (3.5-5.1)
[2019-04-11 10:54] LABS: APTT 29.6 SECONDS (22.8-39.4); INR 1.05 (0.85-1.17); PROTIME 13.2 SECONDS (11.6-15.0)
[~2019-04-13] VITALS: Ht 165.1 cm; Wt 85.7 kg
[~2019-04-13 05:25] MED LIST changes: -HYDROCODON-ACE1 EA10 PO
[2019-04-13 05:53] VITALS: BP 156/75; Ht 165.1 cm; Wt 85.7 kg
[2019-04-13] MEDS ORDERED: HYDROCODON-ACE1 EA10 PO (08:23)
--- NOTE | 2019-04-14 10:43 | OP ---
PATIENT NAME: JOHN VARGAS MEDICAL RECORD: [id number] :41 LOCATION:D.OPS ADMISSION DATE: SURGEON: HERO HERBERT, BEATRIZ CHISHOLM DATE OF OPERATION: 04/13/2019 PREOPERATIVE DIAGNOSES: Trigger finger, left hand, long finger; trigger finger, left hand, ring finger; trigger finger, left hand, small finger. POSTOPERATIVE DIAGNOSES: Trigger finger, left hand, long finger; trigger finger, left hand, ring finger; trigger finger, left hand, small finger. PROCEDURES: 1. A1 rosana trigger finger release, left hand, long finger. 2. A1 rosana trigger finger release, left hand, ring finger. 3. A1 rosana trigger finger release, left hand, small finger. SURGEON: Beatriz Monahan MD HISTOLOGIC AIDE: Phillip Estrella. INTRAOPERATIVE COMPLICATIONS: None. SUMMARY OF PATHOLOGIC FINDINGS: The patient had tight A1 pulleys across the flexor tendon mass with mild excoriation, but no tearing of the tendon. OPERATIVE SUMMARY IN DETAIL: After obtaining the appropriate preoperative orthopedic surgery consent as well as anesthetic consultation, evaluation and clearance, the patient was brought to the operating room and placed on the operating table in supine position. After general laryngeal mask airway was administered, tourniquet was placed on the proximal aspect of the left upper extremity. Left upper extremity was prepped and draped in routine sterile fashion. The arm was elevated and exsanguinated. Tourniquet was inflated to 250 mmHg. After the appropriate preoperative timeout was taken and agreed upon by all, incision was made simultaneously for approach to all three A1 pulleys. The ring finger was approached first, probably the tightest of the three, it was released in its entirety, followed by the long finger. Please note that during the case, all of the neurovascular bundles were identified and protected. The long finger was then released the A1 rosana in its entirety. Lastly, dissection was carried down to the A1 rosana sheath of the small finger and the A1 rosana was released in its entirety. Having completed this, the wound was irrigated and closed with 4-0 Prolene by AMI Alonso. The area was locally infiltrated with 0.25% Marcaine plain. Sterile dressings were applied. Tourniquet was deflated. The patient was awakened and taken to recovery room in stable condition. All final needle and sponge counts were correct. TRANSINT:[id number] Voice Confirmation ID: [id number] DOCUMENT ID: [id number] OPERATIVE REPORT [id number] JOHN VARGAS MD, BEATRIZ CHISHOLM at 1043 CC: [id number] DICTATION DATE: 04/13/19825 LOCKSTITCH SLEEVE SETTER: 04/13/19 0908 [facility] [place] 04/13/19 [place] [id number] [place] [id number]
== END 2019-04-13 10:10 | disposition home or self-care (01) ==
LOC: D.OPS 05:25 → D.PAN 07:30 → D.OPS 10:10
PROVIDERS: Anesthesiology; ATTEND Orthopaedic Surgery
DX: M65.322 Trigger finger, left index finger (principal); M65.352 Trigger finger, left little finger; M65.342 Trigger finger, left ring finger; R73.9 Hyperglycemia, unspecified; K21.9 Gastro-esophageal reflux disease without esophagitis; E78.5 Hyperlipidemia, unspecified; I10 Essential (primary) hypertension; M17.0 Bilateral primary osteoarthritis of knee

== ENCOUNTER → 2019-06-21 18:24 | Outpatient (CLI) | payer MEDICARE, OTHER ==
[2019-04-13 05:53] VITALS: BMI 31.5
[~2019-06-21 18:24] MED LIST changes: +HYDROCODON-ACE1 EA10 PO
[2019-06-21 19:02] LABS: CHOL - HDL RATIO 2.9 ratio (2.3-4.9); LDL-HDL RATIO 1.5 ratio (1.5-3.5)
== END | disposition home or self-care (01) ==
LOC: D.LABREF 18:24
PROVIDERS: ATTEND Internal Medicine Interventional Cardiology
DX: E78.5 Hyperlipidemia, unspecified (principal)

== ENCOUNTER → 2019-09-01 11:27 | Outpatient (CLI) | payer MEDICARE, OTHER ==
[2019-04-13 05:53] VITALS: BMI 31.5
[2019-09-02 17:08] LABS: ANA REFLEX - ANTICHROMATIN ABS 0.2 AI (0.0-0.9); ANA REFLEX - CENTROMERE B ABS <0.2 AI (0.0-0.9); ANA REFLEX - DBL STRANDED DNA 14 IU/mL (0-9); ANA REFLEX - DIRECT Positive (Negative); ANA REFLEX - JO-1 AB <0.2 AI (0.0-0.9); ANA REFLEX - RNP ANTIBODIES 0.2 AI (0.0-0.9); ANA REFLEX - SCL-70 <0.2 AI (0.0-0.9); ANA REFLEX - SJOGRENS AB SSA <0.2 AI (0.0-0.9); ANA REFLEX - SJOGRENS AB SSB <0.2 AI (0.0-0.9); ANA REFLEX - SMITH AB <0.2 AI (0.0-0.9)
== END | disposition home or self-care (01) ==
LOC: D.LAB 11:27
PROVIDERS: ATTEND Family Medicine
DX: R76.8 Other specified abnormal immunological findings in serum (principal); M15.9 Polyosteoarthritis, unspecified

== ENCOUNTER → 2020-07-05 08:34 | Outpatient (CLI) | payer MEDICARE, OTHER ==
[2020-05-15 11:43] VITALS: BMI 31.6
[~2020-07-05 08:34] MED LIST changes: +ASPIRIN81 MG PO; +BENADRYL50 MG; +CALCIUM CHEWABLE; +CARAFATE1 G; +COLACE100 MG PO; -LISINOPRIL10 MG PO; +LISINOPRIL20 MG PO; +OMEPRAZOLE40 MG; +PREDNISONE5 MG; +TUMERIC PO; +ZANAFLEX2 M1
== END | disposition home or self-care (01) ==
LOC: D.US 08:34
PROVIDERS: ATTEND Otolaryngology
DX: E04.1 Nontoxic single thyroid nodule (principal)

== ENCOUNTER → 2020-08-09 18:07 | Outpatient (CLI) | payer MEDICARE, OTHER ==
[2020-05-15 11:43] VITALS: BMI 31.6
[2020-08-09 19:23] LABS: BASOPHILS 0.2 % (0-2); EOSINOPHILS 6.8 % (0-7); HEMATOCRIT 42.3 % (42.0-54.0); HEMOGLOBIN 13.6 g/dL (13.5-17.5); LYMPHOCYTE ABS# 1.04 10x3/uL (1.32-3.57); LYMPHOCYTES 21.3 % (15-50); MCH 29.1 pg (26.0-34.0); MCHC 32.2 g/dL (31.0-37.0); MCV 90.4 fL (80.0-100.0); MEAN PLATELET VOLUME 11.3 fL (7.4-10.4); MONOCYTES 9.6 % (2-11); NEUTROPHIL ABS# 3.03 10x3/uL (1.78-5.38); NEUTROPHILS 62.1 % (40-80); PLATELET COUNT 233 10x3/uL (130-400); RBC 4.68 10x6/uL (4.20-6.10); RDW 13.3 % (11.5-14.5); WBC 4.9 10x3/uL (4.8-10.8)
[2020-08-09 19:32] LABS: ANION GAP 14.9 mmol/L (8-16); CALCIUM 8.8 mg/dL (8.5-10.1); CARBON DIOXIDE 26.8 mmol/L (21.0-32.0); CREATININE - SERUM 1.2 mg/dL (0.6-1.3); POTASSIUM - SERUM 4.7 mmol/L (3.5-5.1)
== END | disposition home or self-care (01) ==
LOC: D.LABREF 18:07
DX: I10 Essential (primary) hypertension (principal); R60.9 Edema, unspecified

== ENCOUNTER → 2020-09-16 07:53 | Outpatient (CLI) | payer MEDICARE, OTHER ==
[2020-05-15 11:43] VITALS: BMI 31.6
== END | disposition home or self-care (01) ==
LOC: D.HCCECHO 07:53
PROVIDERS: ATTEND Internal Medicine Cardiovascular Disease
DX: I10 Essential (primary) hypertension (principal); Z95.4 Presence of other heart-valve replacement

== ENCOUNTER 2020-09-24 06:49 | Day surgery (SDC) | payer MEDICARE, OTHER ==
[~2020-09-24] VITALS: Ht 170.2 cm; Wt 86.0 kg
--- NOTE | ~2020-09-24 | HEMODYNAMI ---
PATIENT:JOHN VARGAS MEDICAL RECORD: [id number] : 41 LOCATION:D.CAT ADMISSION DATE: 09/24/20 Generatedon::55 Patient name: JOHN VARGAS Patient #: [id number] SSN: [id number] : 1945 Date of study: 09/24/2020 Page: Of Hemodynamic Procedure Report Patient Data Patient Demographics Procedure consent was obtained First Name: JOHN Gender: Male Last Name: ALICIA : 1945 Patient #: [id number] Age: 75 year(s) Race: SSN: [id number] Additional ID: [id number] Contact details Address: [address] [place] [address] State: [place] City: [place] Zip code: [address] Past Medical History Allergies Allergen Reaction Date Comments Reported Other allergy 11/18/2018 Dilaudid, morphine Other allergy 09/24/2020 see chart Admission Admission Data Admission Date: 09/24/2020 Admission Time: 6:49 Arrival Date: 09/24/2020 Arrival Time: 8:30 Admit Source: Other Insurance Payor: Medicare [facility] #: [id number] Height (in.): 67 BSA: 1.98 (m2) Height (cm.): 170.18 BMI: 29.69 (kg/m2) Weight (lbs.): 189.6 Weight (kg.): 86 Lab Results Lab Result Date: 09/24/2020 Lab Result Time: 0:00 Biochemistry Name Units Result Min Max BUN mg/dl 13 --(--*-)-- 7 18 Creatinine mg/dl 1.2 --(---*)-- 0.6 1.3 eGFR ml/min 61.23885 *-(----)-- 90 120 NONAFRICAN CBC Name Units Result Min Max Hematocrit % 40.3 -*(----)-- 42 54 Hemoglobin g/dl 13.4 -*(----)-- 13.5 17.5 Procedure Procedure Types Cath Procedure Diagnostic Procedure [facility] w/Coronaries Aortic Root Angiography Sedation Charges Moderate Sedation 25-39 minutes Procedure Description Procedure Date Procedure Date: 09/24/2020 Procedure Start Time: 9:36 Procedure End Time: 9:54 Procedure Staff Name Function Nishant Boss MD Performing Physician Jennifer Curiel RT Monitor Ni Lopez RT Scrub Sae Foss RN Nurse Procedure Data Cath Procedure Fluoroscopy Diagnostic fluoroscopy Total fluoroscopy Time: 2.6 time: 2.6 min min Diagnostic fluoroscopy Total fluoroscopy dose: 548 dose: 548 mGy mGy Contrast Material Contrast Material Type Amount (ml) Isovue 370 69 Entry Location Entry Primary Successful Side Size Upsize Upsize Entry Closure Succes sful Closure Location (Fr) 1 (Fr) 2 (Fr) Remarks Device Remarks Femoral Right 5 Fr Exoseal artery Estimated blood loss: 5 ml Diagnostic catheters Device Type Used For End Catheter Placement MULTIPACK JL 4.0 5Fr Procedure catheter DIAGNOSTIC JL 5 5Fr Procedure catheter ([id number]) MULTIPACK 3DRC 5Fr Procedure catheter MULTIPACK Pigtail 5 Fr Procedure catheter Procedure Complications No complications Procedure Medications Medication Administration Route Dosage 0.9% NaCl I.V. 100 ml/hr Oxygen etCO2 Nasal cannula 2 l/min Benadryl I.V. 50 mg Heparin Flush Bag added to field 2 bags (1000units/500ml NS) Lidocaine 2% added to field 20 Versed I.V. 1 mg Fentanyl I.V. 50 mcg Versed I.V. 1 mg Fentanyl I.V. 50 mcg Hemodynamics Rest BSA: 1.98 (m2) HGB: 13.4 (g/dl) O2 Consumption: Estimated: 215.68 (ml/min) O2 Co nsumption indexed: Estimated:108.93 (ml/min/m) Heart Rate: 55 (bpm) Snapshots Pre Cath Intra NCS Post Cath Vital Signs Time Heart Resp SPO2 etCO2 NIBP (mmHg) Rhythm Pain Sedation Rate (ipm) (%) (mmHg) Status Level (bpm) 9:04:29 54 10 100 32.2 153/76(120) NSR 0 (11) 10(A) , No pain 9:08:43 53 11 98 33.7 121/73(100) NSR 0 (11) 10(A) , No pain 9:12:55 53 10 98 35.9 126/64(103) NSR 0 (11) 10(A) , No pain 9:17:03 55 11 99 33.7 136/77(111) NSR 0 (11) 10(A) , No pain 9:21:15 55 10 99 34.4 140/77(116) NSR 0 (11) 10(A) , No pain 9:25:33 55 10 99 34.5 144/65(116) NSR 0 (11) 10(A) , No pain 9:29:49 55 10 99 33.7 137/71(108) NSR 0 (11) 10(A) , No pain 9:34:05 56 16 97 9 118/68(87) NSR 0 (11) 9(A) , No pain 9:38:06 56 10 98 31.4 140/105(126) NSR 0 (11) 9(A) , No pain 9:42:25 53 11 99 27.7 138/65(112) NSR 0 (11) 9(A) , No pain 9:46:39 57 10 99 27.7 138/75(117) NSR 0 (11) 9(A) , No pain 9:50:52 64 12 99 18 148/77(120) NSR 0 (11) 10(A) , No pain 9:55:11 0 154/81(119) NSR 0 (11) 10(A) , No pain Medications Time Medication Route Dose Verified Delivered Reason Notes Effe ctiveness by by 9:02:59 0.9% NaCl I.V. 100 Nishant Sae used for ml/hr Gera Foss educational aide 9:03:10 Oxygen etCO2 2 Nishant Sae used for Nasal l/min Gera Foss educational aide cannula 9:03:18 Benadryl I.V. 50 mg Nishant Sae used for Gera Foss educational aide 9:03:30 Heparin Flush added 2 Nishant Nishant used for Bag to bags Gera Boss MD procedure (1000units/500ml field NS) 9:03:42 Lidocaine 2% added 20ml Nishant Nishant for local to vial Gera Boss MD anesthetic field 9:24:12 Versed I.V. 1 mg Nishant Sae for Gera Foss RN sedation 9:24:19 Fentanyl I.V. 50 Nishant Sae for mcg Gera Foss RN sedation 9:29:36 Versed I.V. 1 mg Nishant Sae for Gera Foss RN sedation 9:29:39 Fentanyl I.V. 50 Nishant Sae for mcg Gera Foss RN sedation Procedure Log Time Note 7:52:37 Informed consent obtained and on chart 7:52:42 Diagnostic Cath Status : Elective 7:54:21 Admit Source: Other 7:54:24 Arrival Date: 09/24/2020 8:30:00 AM 7:54:52 Insurance Payor : Medicare 8:44:46 Patient Height : 67 inches 8:44:54 Patient Weight : 189.6 lbs 8:45:27 ACC Patient presents with Unstable Angina CCS Anginal Class 2--Slight limitation of ordinary activity. 8:45:42 Procedure Status Elective Heart Cath (OP). 8:45:48 Time tracking: Regular hours (M-F 7:00 - 5:00) 8:45:58 Plan of Care:Hemodynamics will remain stable., Cardiac rhythm will remain stable., Comfort level will be maintained., Respiratory function will remain adequate., Patient/ family verbilizes understanding of procedure., Procedure tolerated without complication., Recovers from procedure without complications.. 8:46:01 Ni Lopez RT(R) sent for patient. Start room use. 8:47:13 Lab Result : eGFR NONAFRICAN 61.22049 ml/min 8:47:13 Lab Result : Creatinine 1.2 mg/dl 8:47:13 Lab Result : BUN 13 mg/dl 8:47:13 Lab Result : Hemoglobin 13.4 g/dl 8:47:13 Lab Result : Hematocrit 40.3 % 8:50:28 Lab results completed and on chart. 8:50:37 Risk of Mortality: .1 8:50:40 Risk of blood transfusion: .7 8:50:43 Risk of FABRICE: 1.0 8:50:44 Alarms reviewed by R. N. 8:50:45 Sharps counted by scrub and verified by R.N. 8:52:01 Patient received from Pre/Post Procedure Room to [facility] 2 Alert and oriented. Tansferred to table in Supine position. 8:52:02 Warm blankets applied, and chuck hugger turned on for patient comfort. 8:52:03 Correct patient and procedure confirmed by team. 8:52:03 ECG and BP/O2 sat monitors applied to patient. 8:52:04 Full Disclosure recording started 8:52:11 H&P Date Dictated: 09/04/2020 Within 30 days and on chart.. 8:52:11 Pre-procedure instructions explained to patient. 8:52:12 Pre-op teaching completed and patient verbalized understanding. 8:52:13 Family in patients room. 8:52:15 Patient NPO since Midnight. 8:52:26 Patient allergic to Other allergysee chart 9:02:59 0.9% NaCl 100 ml/hr I.V. was administered by Sae Foss RN; used for procedure; Verbal order read back and verified. 9:03:10 Oxygen 2 l/min etCO2 Nasal cannula was administered by Sae Foss RN; used for procedure; Verbal order read back and verified. 9:03:14 Vital chart was started 9:03:18 Benadryl 50 mg I.V. was administered by Sae Foss RN; used for procedure; Verbal order read back and verified. 9:03:20 Baseline sample Acquired. 9:03:26 Rhythm: sinus bradycardia 9:03:30 Heparin Flush Bag (1000units/500ml NS) 2 bags added to field was administered by Nishant Boss MD; used for procedure; Verbal order read back and verified. 9:03:42 Lidocaine 2% 20ml vial added to field was administered by Nishant Boss MD; for local anesthetic; Verbal order read back and verified. 9:03:52 Is the patient allergic to Iodine/contrast media? No. 9:03:59 Is patient on blood thinner?Yes 9:04:07 ACC The patient was administered the following blood thiners within the last 24 hours: ACCAspirin 9:04:20 Patient diabetic? No. 9:04:22 If diabetic: On Metformin? N/A 9:04:23 ----Pre-sedation anethsthesia assessment.---- 9:04:26 Previous problem with sedation/anesthesia? No ? 9:04:27 Snore? Yes 9:04:28 Sleep apnea? No 9:04:29 Deviated septum? No 9:04:30 Opens mouth fully? Yes 9:04:31 Sticks out tongue? Yes 9:04:38 Airway obstruction? No ? 9:04:42 Dentures? Yes IN TIGHT 9:04:46 Pre procedure: right dorsailis pedis pulse 1+ Palpable, but thready & weak; easily obliterated 9:04:51 Patient pain scale 0/10 ?. 9:04:56 IV patent on arrival in left antecubital with 0.9% NaCl at [facility]. 9:05:02 Right groin area was prepped with chlora-prep and draped in sterile fashion 9:05:12 Use device set Femoral Dx 9:05:13 ACIST Syringe (93130) opened to sterile field. 9:05:16 Bag Decanter (2002S) opened to sterile field. 9:05:17 Medline Cath Pack ([id number]) opened to sterile field. 9:05:18 ACIST Hand Control (08706) opened to sterile field. 9:05:20 ACIST Manifold (88561) opened to sterile field. 9:05:20 DIAGNOSTIC Multipack 5Fr catheter set ([id number]) opened to sterile field. 9:05:22 SHEATH 5FR [place] ([id number]) opened to sterile field. 9:05:23 EMERALD Guide Wire (262-834) opened to sterile field. 9:05:24 Tegaderm 4 x 4 (1626W) opened to sterile field. 9:23:48 --------ALL STOP TIME OUT------ 9:23:48 Final Timeout: patient, procedure, and site verified with staff and physician. All members of the team are in agreement. 9:23:50 Right groin site verified by team. 9:23:55 Fire Safety Assessment: A--An alcohol-based skin anteseptic being used preoperatively., C--Open oxygen or nitrous oxide is being used., D--An ESU, laser, or fiber-optic light is being used. 9:23:58 Physical assessment completed. ASA score P 2 - A patient with mild systemic disease as per Nishant Boss MD. 9:24:01 2) 60-89 Mildly reduced kidney function, and other findings (as for stage 1) point to kidney disease. 9:24:03 Maximum allowable contrast dose (3.7 X eGFR X 0.75)172 ml. 9:24:07 Sedation plan: IV Moderate Sedation Medication:Versed, Fentanyl 9:24:12 Versed 1 mg I.V. was administered by Sae Foss RN; for sedation; Verbal order read back and verified. 9:24:19 Fentanyl 50 mcg I.V. was administered by Sae Foss RN; for sedation; Verbal order read back and verified. 9:24:58 Zero performed for pressure channel P1 9:29:36 Versed 1 mg I.V. was administered by Sae Foss RN; for sedation; Verbal order read back and verified. 9:29:39 Fentanyl 50 mcg I.V. was administered by Sae Foss RN; for sedation; Verbal order read back and verified. 9:36:14 Stress Test: yes; abnormal APICAL 9:36:36 Procedure started. 9:36:39 Local anesthetic to right femoral artery with Lidocaine 2% by Nishant Boss MD.INITIAL ACCESS ONLY 9:37:19 J WIRE INSERTED. 9:37:22 A 5 Fr sheath was inserted into the Right Femoral artery 9:37:46 A MULTIPACK JL 4.0 5Fr catheter was advanced over the wire and used for Procedure. 9:40:10 Catheter exchanged over wire. 9:40:49 A DIAGNOSTIC JL 5 5Fr catheter ([id number]) was advanced over the wire and used for Procedure. 9:41:22 LCA angiography performed. 9:41:24 Injector settings: Ml/sec: 3, Volume: 6, 9:42:16 Catheter exchanged over wire. 9:43:44 A MULTIPACK 3DRC 5Fr catheter was advanced over the wire and used for Procedure. 9:44:28 RCA angiography performed. 9:44:30 Injector settings: Ml/sec: 3, Volume: 6, 9:44:52 Catheter exchanged over wire. 9:45:36 A MULTIPACK Pigtail 5 Fr catheter was advanced over the wire and used for Procedure. 9:47:12 Aortic Root visualized 9:47:14 Injector settings: Ml/sec: 10, Volume: 20, 9:48:44 Catheter removed. 9:48:54 EXOSEAL 5Fr (EX500) opened to sterile field. 9:49:03 Sheath removed intact; hemostasis achieved with Exoseal to the Right Femoral artery. 9:49:05 Procedure ended.(Physican Out) 9:49:14 Fluoroscopy time 02.60 minutes. 9:49:18 Fluoroscopy dose: 548 mGy 9:49:18 Flurop Dose total: 548 9:49:23 Dose Area Product 75221 mGy/cm. 9:49:30 Contrast amount:Isovue 370 69ml. 9:49:32 Maximum allowable dose exceeded? No. 9:49:33 Sharps counted by scrub and verified by R.N. 9:49:40 Post-op/insertion site Right Femoral artery dressed using a 4 x 4 and Tegaderm. 9:49:48 Post right femoral artery:stable, soft, clean and dry 9:49:49 Post Procedure Pulses reassessed and unchanged 9:49:52 Post procedure: right dorsailis pedis pulse 1+ Palpable, but thready & weak; easily obliterated. 9:49:57 Post-procedure physical assessment completed. ASA score P 2 - A patient with mild systemic disease as per Nishant Boss MD. 9:49:59 Post procedure rhythm: unchanged. 9:50:13 Estimated blood loss: 5 ml 9:50:15 Post procedure instruction explained to patient.Patient verbalizes understanding. 9:50:15 Patient needs reinforcement of post procedure teaching. 9:52:06 Procedure type changed to Cath procedure, Diagnostic procedure, LHC, [facility] w/Coronaries, Aortic Root Angiography, Sedation Charges, Moderate Sedation 25-39 minutes 9:52:08 Procedure and supply charges have been captured, reviewed, submitted and are correct. 9:52:50 Procedure Complication : No complications 9:52:54 [facility] Findings: mild to moderate CAD (<70%) 9:54:25 Operative report dictated upon procedure completion. 9:54:27 See physician's report for complete and final results. 9:54:31 Report given to Pre/Post Procedure Room. 9:54:33 Patient transfered to Pre/Post Procedure Room with Stretcher. 9:54:35 Procedure ended. 9:54:35 Full Disclosure recording stopped 9:54:54 End room use (Document Last) 9:55:04 End room use (Document Last) 9:55:25 End room use (Document Last) 9:55:55 Vital chart was stopped Device Usage Item Name Manufacture Quantity Catalog Hospital Part Current Minimal L ot# / Number Charge Number Stock Stock Serial# Code ACIST Acist 1 17378 703753 038443 307562 20 Syringe Medical (35381) Systems Inc Bag Microtek 1 486356 79255 819358 5 Decanter Medical Inc. () Medline Medline 1 [id number] 759326 50545 406772 5 Cath Pack ([id number]) ACIST Hand Acist 1 19288 243981 261413 604999 5 Control Medical (56202) Systems Inc ACIST Acist 1 04364 418366 915176 586058 5 Manifold Medical (54474) Systems Inc DIAGNOSTIC Cardinal 1 [id number] 699647 95075 251812 30 MultipmotionBEAT inc 5Fr catheter set (MZ8281) SHEATH 5FR Terumo 1 VXX039 670774 901550 502489 5 [place] (WGI465) EMERALD Cardinal 1 502-455 297377 721007 033953 5 Guide Wire [facility] (502455) Tegaderm 4 3M 1 1626W 542918 036156 808573 5 x 4 (1626W) MULTIPACK Cardinal 1 046582 5 JL 4.0 5Fr Health catheter DIAGNOSTIC Cardinal 1 [id number] 423858 504678 904967 5 JL 5 5Fr Health catheter (478231Q) MULTIPACK Cardinal 1 856318 5 3DRC 5Fr Health catheter MULTIPACK Cardinal 1 981612 5 Pigtail 5 Health Fr catheter EXOSEAL 5Fr Cardinal 1 EX500 565797 091284 182388 10 (EX500) Health Signature Audit [place] Stage Time Signature Unsigned Intra-Procedure 09/24/2020 Jennifer Curiel 9:55:04 AM RT(R) Intra-Procedure 09/24/2020 Sae Foss RN 9:55:25 AM Intra-Procedure 09/24/2020 Nishant Boss MD 9:55:53 AM Signatures Performing Physician : Signature : Nishant Boss MD Date : Time : Monitor : Jennifer Curiel Signature : RT Date : Time : Nurse : Sae Pipo RN Signature : Date : Time : [address] [place] [address]
[~2020-09-24 06:49] MED LIST changes: -OMEPRAZOLE40 MG; +OMEPRAZOLE40 MG PO
[2020-09-24] MEDS ORDERED: NORMODYNE / TR200 MG PO (07:24)
[2020-09-24] MEDS ORDERED: PERCOCET 10-321 EAC1 PO (07:27)
[2020-09-24] MEDS ORDERED: LASIX20 MG PO (07:30)
[2020-09-24] MEDS ORDERED: DIPHEDRYL25 MG PO (07:30)
[2020-09-24 07:38] VITALS: BP 141/71; Ht 170.2 cm; Wt 86.0 kg
[2020-09-24 07:51] LABS: BASOPHILS 0.9 % (0-2); EOSINOPHILS 4.8 % (0-7); HEMATOCRIT 40.3 % (42.0-54.0); HEMOGLOBIN 13.4 g/dL (13.5-17.5); LYMPHOCYTES 21.5 % (15-50); MCH 27.7 pg (26.0-34.0); MCHC 33.3 g/dL (31.0-37.0); MCV 83.3 fL (80.0-100.0); MEAN PLATELET VOLUME 8.6 fL (7.4-10.4); MONOCYTES 11.2 % (2-11); NEUTROPHILS 61.6 % (40-80); PLATELET COUNT 191 10x3/uL (130-400); RBC 4.84 10x6/uL (4.20-6.10); WBC 4.9 10x3/uL (4.8-10.8)
[2020-09-24 08:06] LABS: ANION GAP 11.6 mmol/L (8-16); CALCIUM 8.8 mg/dL (8.5-10.1); CARBON DIOXIDE 29.1 mmol/L (21.0-32.0); CREATININE - SERUM 1.2 mg/dL (0.6-1.3); LDL-HDL RATIO 2.4 ratio (1.5-3.5); POTASSIUM - SERUM 3.7 mmol/L (3.5-5.1)
--- NOTE | 2020-09-24 10:05 | NUR ---
PT ARRIVED BY STRETCHER. PLACED ON MONITORS. ASSESSMENT COMPLETED. VSS AT THIS TIME. CALL LIGHT WITHIN REACH. FAMILY AT BEDSIDE. DR. SANCHEZ ROUNDED AND SPOKE WITH PT AND PT'S .
--- NOTE | 2020-09-24 10:20 | NUR ---
PT VOIDED 600cc OF CLEAR YELLOW URINE IN URINAL WITHOUT DIFFICULTY. RIGHT GROIN DRESSING C/D/I. NO S/S OF HEMATOMA NOTED. RIGHT PEDAL PULSE PALPABLE.
--- NOTE | 2020-09-24 10:50 | NUR ---
PT RESTING COMFORTABLY. VSS AT THIS TIME. CALL LIGHT WITHIN REACH. FAMILY AT BEDSIDE. RIGHT GROIN DRESSING C/D/I. NO S/S OF HEMATOMA NOTED. RIGHT PEDAL PULSE PALPABLE.
--- NOTE | 2020-09-24 11:05 | NUR ---
RIGHT GROIN DRESSING C/D/I. NO S/S OF HEMATOMA NOTED. RIGHT PEDAL PULSE PALPABLE. HEAD OF BED INC TO 30 DEGREES. TOLERATED WELL. SET UP WITH SANDWICH TRAY AND DRINK. DENIES NAUSEA/PAIN. FAMILYI AT BEDSIDE TO ASSIST.
--- NOTE | 2020-09-24 11:15 | NUR ---
CURTAIN CLOSED, ARRIVED IN ROOM AND PT STANDING UP TO SIDE OF BED VOIDING IN URINAL. I INFORMED PT AND HE WASN'T OFF OF BEDREST. SHE STATED "I KNOW, BUT WHAT WAS HE SUPPOSED TO DO?". PT BACK TO BED. RIGHT GROIN DRESSING C/D/I. NO S/S OF HEMATOMA NOTED. CALL LIGHT WITHIN REACH. PT INSTRUCTED TO STAY IN BED UNTIL HE WAS OFF OF BEDREST. HE VOICED UNDERSTANDING.
--- NOTE | 2020-09-24 11:45 | NUR ---
RIGHT GROIN DRESSING C/D/I. NO S/S OF HEMATOMA NOTED. PIV D/C'D WITH CATH TIP INTACT. TOLERATED WELL. VSS AT THIS TIME. PT INSTRUCTED TO GET UP AND DRESSED AT THIS TIME. FAMILY AT BEDSIDE TO ASSIST.
--- NOTE | 2020-09-24 12:00 | NUR ---
PT AMBULATED TO RESTROOM. VOIDED WITHOUT DIFFICULTY. STEADY GAIT NOTED. BACK TO ROOM. DISCUSSED DISCHARGE INSTRUCTIONS WITH PT AND PT'S . THEY VOICED UNDERSTANDING.
--- NOTE | 2020-09-24 12:10 | NUR ---
RIGHT GROIN DRESSING C/D/I. NO S/S OF HEMATOMA NOTED. PT TAKEN OUT TO VEHICLE BY WHEELCHAIR. NO S/S OF DISTRESS NOTED. ALL BELONGINGS AND PAPERWORK IN HAND.
== END 2020-09-24 12:10 | disposition home or self-care (01) ==
LOC: D.CATH 06:49
PROVIDERS: ATTEND Internal Medicine Cardiovascular Disease
DX: I20.9 Angina pectoris, unspecified (principal); R94.39 Abnormal result of other cardiovascular function study; I10 Essential (primary) hypertension; E78.5 Hyperlipidemia, unspecified